=== PATIENT | female | born 1945 | race Caucasian/White ===

== ENCOUNTER 2020-09-03 10:08 | Observation (INO) | payer OTHER ==
[~2020-09-03] VITALS: Ht 162.6 cm; Wt 79.4 kg
[~2020-09-03 10:08] MED LIST: FAMCICLOVIR500 MG PO
[2020-09-03 11:12] LABS: HEMOGLOBIN 13.4 gm/dl (12.3-15.3); RED BLOOD COUNT 4.6 M/UL (4.00-5.10); WHITE BLOOD COUNT 4.8 K/UL (4.5-11.0)
[2020-09-03 11:33] LABS: BUN/CREATININE RATIO 24 (0-10)
[2020-09-03] MEDS ORDERED: PROCARDIA XL60 MG PO (14:07)
[2020-09-03] MEDS ORDERED: ROPINIROLE HCL4 MG PO (14:08)
[2020-09-03] MEDS ORDERED: ACTOS30 MG PO (14:08)
[2020-09-03] MEDS ORDERED: NEURONTIN600 MG PO (14:08)
[2020-09-03] MEDS ORDERED: LANTUS SOL100 UNIT/1 SC (14:25)
[2020-09-03] MEDS ORDERED: DAILY-VITE1 EACH PO (14:26)
--- NOTE | 2020-09-04 02:29 | NUR ---
[address] T[address] PT DOWN FOR CT OF CHEST AT THIS TIME.
[2020-09-04 06:04] LABS: HEMOGLOBIN 13.7 gm/dl (12.3-15.3); RED BLOOD COUNT 4.68 M/UL (4.00-5.10); WHITE BLOOD COUNT 5.4 K/UL (4.5-11.0)
[2020-09-04 06:22] LABS: BUN/CREATININE RATIO 22 (0-10)
[2020-09-05] MEDS ORDERED: ATORVASTATIN CA20 MG PO (09:39)
== END 2020-09-05 11:21 | disposition home or self-care (01) ==
LOC: ER1 10:08 → CDU 13:40 → MED SURG 4 13:40
PROVIDERS: Physician Assistant; Student in an Organized Health Care Education/Training Program; ADMIT Internal Medicine
DX: R07.89 Other chest pain (principal); E11.9 Type 2 diabetes mellitus without complications; I10 Essential (primary) hypertension; E78.5 Hyperlipidemia, unspecified; G25.81 Restless legs syndrome; G47.33 Obstructive sleep apnea (adult) (pediatric); J45.909 Unspecified asthma, uncomplicated; J96.01 Acute respiratory failure with hypoxia; Z79.4 Long term (current) use of insulin; Z79.899 Other long term (current) drug therapy; Z87.891 Personal history of nicotine dependence; Z86.73 Personal history of transient ischemic attack (TIA), and cerebral infarction without residual deficits; Z20.822 Contact with and (suspected) exposure to COVID-19
CPT/HCPCS: ECHO; 0240U; 36415; 36600; 71045; 71275; 80048; 80053; 80061; 81001; 82550; 82553; 82803; 82962; 83605; 83735; 83874; 83880; 84100; 84484; 85025; 85379; 85610; 85730; 93005; 93306; 96374; 99285; G0378; J1940; Q9967

== ENCOUNTER 2021-03-21 21:12 | Observation (INO) | payer OTHER ==
[~2021-03-21] VITALS: Ht 162.6 cm; Wt 85.7 kg
[~2021-03-21 21:12] MED LIST changes: +ACTOS30 MG PO; +ATORVASTATIN CA20 MG PO; +DAILY-VITE1 EACH PO; +LANTUS SOL100 UNIT/1 SC; +NEURONTIN600 MG PO; +PROCARDIA XL60 MG PO; +ROPINIROLE HCL4 MG PO
[2021-03-21 22:52] LABS: HEMOGLOBIN 12.8 gm/dl (12.3-15.3); RED BLOOD COUNT 4.32 M/UL (4.00-5.10); WHITE BLOOD COUNT 9.1 K/UL (4.5-11.0)
[2021-03-21 23:06] LABS: BUN/CREATININE RATIO 28 (0-10)
[2021-03-22] MEDS ORDERED: ALBUTEROL0.63 MG/3 INH (04:04)
[2021-03-22] MEDS ORDERED: LOPRESSOR 25 MG25 MG PO (04:05)
[2021-03-22] MEDS ORDERED: FUROSEMIDE40 MG PO (04:06)
[2021-03-22] MEDS ORDERED: FLUTICASONE-SA1 EAC4 INH (04:06)
[2021-03-22] MEDS ORDERED: OMEPRAZOLE20 MG PO (04:07)
[2021-03-22] MEDS ORDERED: POTASSIUM CHLO10 ME1 PO (04:07)
[2021-03-22 07:30] LABS: HEMOGLOBIN 13.5 gm/dl (12.3-15.3)
[2021-03-22 07:36] LABS: RED BLOOD COUNT 4.76 M/UL (4.00-5.10)
[2021-03-22 08:04] LABS: BUN/CREATININE RATIO 26 (0-10)
[2021-03-23 05:54] LABS: HEMOGLOBIN 13.2 gm/dl (12.3-15.3); RED BLOOD COUNT 4.48 M/UL (4.00-5.10)
[2021-03-23 05:56] LABS: WHITE BLOOD COUNT 11.9 K/UL (4.5-11.0)
--- NOTE | 2021-03-23 11:42 | NUR ---
Patient walked from room to the nurses station to ask about home 02, while on room air. Upon walking back to bed her 02 sat dropped to 79% and patient was placed back on 02 at 2L via nasal cannula.
== END 2021-03-23 13:54 | disposition home or self-care (01) ==
LOC: ER1 21:12 → MED SURG 4 03-22 01:17 → CDU 03-22 01:17 → MED SURG 4 03-22 03:33
PROVIDERS: Internal Medicine; Physician Assistant; ADMIT Internal Medicine
DX: I11.0 Hypertensive heart disease with heart failure (principal); I50.9 Heart failure, unspecified; J96.01 Acute respiratory failure with hypoxia; J44.9 Chronic obstructive pulmonary disease, unspecified; E11.9 Type 2 diabetes mellitus without complications; G47.33 Obstructive sleep apnea (adult) (pediatric); E78.5 Hyperlipidemia, unspecified; Z86.73 Personal history of transient ischemic attack (TIA), and cerebral infarction without residual deficits; Z87.891 Personal history of nicotine dependence; Z88.2 Allergy status to sulfonamides; Z88.1 Allergy status to other antibiotic agents; Z79.4 Long term (current) use of insulin; Z79.899 Other long term (current) drug therapy; Z20.822 Contact with and (suspected) exposure to COVID-19
CPT/HCPCS: ECHO; 0240U; 36415; 36600; 71045; 71275; 80048; 80053; 81001; 82550; 82553; 82803; 82962; 83735; 83874; 83880; 84484; 85025; 85379; 85610; 85730; 87040; 87086; 93005; 93306; 94640; 94664; 94760; G0378; J1650; J1940; Q9967

== ENCOUNTER → 2021-10-17 | Outpatient (CLI) | payer OTHER ==
[~2021-10-17] MED LIST changes: +ALBUTEROL0.63 MG/3 INH; +FLUTICASONE-SA1 EAC4 INH; +FUROSEMIDE40 MG PO; +LOPRESSOR 25 MG25 MG PO; +OMEPRAZOLE20 MG PO; +POTASSIUM CHLO10 ME1 PO
[2021-10-17 12:13] LABS: HEMOGLOBIN 15.4 gm/dl (12.3-15.3); RED BLOOD COUNT 5.19 M/UL (4.00-5.10); WHITE BLOOD COUNT 5.7 K/UL (4.5-11.0)
== END ==
LOC: LAB 11:46
PROVIDERS: Internal Medicine Pulmonary Disease
DX: J45.40 Moderate persistent asthma, uncomplicated (principal)
CPT/HCPCS: 36415; 82785; 85025

== ENCOUNTER → 2021-10-17 | Outpatient (CLI) | payer OTHER | LOC: HEART 5 09:51 | DX: J44.9 Chronic obstructive pulmonary disease, unspecified (principal); J45.40 Moderate persistent asthma, uncomplicated | CPT/HCPCS: 94010; 95012 ==